=== PATIENT | female | born 1975 | race Caucasian/White ===

== ENCOUNTER 2018-08-05 14:57 | Day surgery (SDC) | payer MEDICAID ==
[~2018-08-05] VITALS: Ht 157.5 cm; Wt 82.0 kg
[~2018-08-05 14:57] MED LIST: ALBU8.5H8 IH; MELO-107 PO; SODIUM CHLORIDE 0.9% 1,000 ML IV ONE
[2018-08-05] MEDS ORDERED: FentaNYL CITRATE-PF 100 MCG/2 ML VIAL ONE ×2 (15:02→15:03)
[2018-08-05] MEDS ORDERED: MIDAZOLAM HCL 5 MG/ML VIAL ONE ×2 (15:02→15:03)
== END 2018-08-05 15:50 | disposition home or self-care (01) ==
LOC: SURGERY 14:57
PROVIDERS: ATTEND Student in an Organized Health Care Education/Training Program
DX: D64.9 Anemia, unspecified (principal); Z53.8 Procedure and treatment not carried out for other reasons; J45.909 Unspecified asthma, uncomplicated; B18.2 Chronic viral hepatitis C; K74.60 Unspecified cirrhosis of liver; K21.9 Gastro-esophageal reflux disease without esophagitis; E66.9 Obesity, unspecified; Z88.8 Allergy status to other drugs, medicaments and biological substances; Z79.899 Other long term (current) drug therapy; Z83.3 Family history of diabetes mellitus; Z82.49 Family history of ischemic heart disease and other diseases of the circulatory system; Z68.33 Body mass index [BMI] 33.0-33.9, adult; D69.6 Thrombocytopenia, unspecified; F17.210 Nicotine dependence, cigarettes, uncomplicated
CPT/HCPCS: J2250; J3010; J7030

== ENCOUNTER 2018-09-02 11:50 | Day surgery (SDC) | payer MEDICAID ==
[~2018-09-02] VITALS: Ht 158.8 cm; Wt 81.4 kg
[2018-09-02] MEDS ORDERED: LIDOCAINE/PF 2% 5 ML SYRINGE IVP ONE (11:51)
[2018-09-02] MEDS ORDERED: PROPOFOL 1% 20 ML VIAL IVP ONE (11:51)
[2018-09-02] MEDS ORDERED: SODIUM CHLORIDE 0.9% 1,000 ML IV ONE (12:30)
== END 2018-09-02 17:10 | disposition home or self-care (01) ==
LOC: SURGERY 11:50
PROVIDERS: ATTEND Student in an Organized Health Care Education/Training Program
DX: K29.50 Unspecified chronic gastritis without bleeding (principal); K31.89 Other diseases of stomach and duodenum; K21.9 Gastro-esophageal reflux disease without esophagitis; K74.60 Unspecified cirrhosis of liver; Z82.49 Family history of ischemic heart disease and other diseases of the circulatory system; E66.9 Obesity, unspecified; F17.210 Nicotine dependence, cigarettes, uncomplicated; Z83.3 Family history of diabetes mellitus; Z68.32 Body mass index [BMI] 32.0-32.9, adult
CPT/HCPCS: 43239; 84703; 88305; 88312; 88313; C1769; J2704; J3490; J7030